=== PATIENT | male | born 1990 | race American Indian/Alaskan Native ===

== ENCOUNTER 2018-06-19 04:26 | Emergency (ER) | payer BC, OTHER ==
[2018-06-19 05:52] VITALS: BP 139/86
--- NOTE | 2018-06-19 06:31 | Emergency Department Report ---
<TOSHIA ARTEAGA A - Last Filed: 06/19/18 08:12> ED Abdominal Pain HPI - General Chief Complaint: Rectal Pain Stated Complaint: RECTUM SWELLING Time Seen by Provider: 06/19/18 06:08 - Related Data Home Medications Medication Instructions Recorded Confirmed Last Taken Emtricita/Rilpiviri/Tenofo(Nf) 1 tab PO QDAY 09/24/15 09/24/15 09/23/15 16:00 [Complera (Nf) 200-25-300 mg] Previous Rx's Medication Instructions Recorded Last Taken Type Cyclobenzaprine [Flexeril] 10 mg PO TID PRN #10 tablet 05/06/16 Unknown Rx methylPREDNISolone [Medrol] 4 mg PO DAILY #1 tab.ds.pk 05/06/16 Unknown Rx traMADol [Ultram] 50 mg PO Q6HR PRN #10 tablet 05/06/16 Unknown Rx Sulfamethoxazole/Trimethoprim 1 each PO BID 10 Days #20 tablet 06/19/18 Unknown Rx [Bactrim DS TAB] Allergies Allergy/AdvReac Type Severity Reaction Status Date / Time No Known Allergies Allergy Unverified 09/24/15 10:44 ED Review of Systems ROS: Stated complaint: RECTUM SWELLING Other details as noted in HPI ED Past Medical Hx - Medications Home Medications: Home Medications Medication Instructions Recorded Confirmed Last Taken Type Emtricita/Rilpiviri/Tenofo(Nf) 1 tab PO QDAY 09/24/15 09/24/15 09/23/15 16:00 History [Complera (Nf) 200-25-300 mg] Cyclobenzaprine [Flexeril] 10 mg PO TID PRN #10 tablet 05/06/16 Unknown Rx methylPREDNISolone [Medrol] 4 mg PO DAILY #1 tab.ds.pk 05/06/16 Unknown Rx traMADol [Ultram] 50 mg PO Q6HR PRN #10 tablet 05/06/16 Unknown Rx Sulfamethoxazole/Trimethoprim 1 each PO BID 10 Days #20 tablet 06/19/18 Unknown Rx [Bactrim DS TAB] ED Course Vital Signs 06/19/18 06/19/18 05:50 08:25 Temperature 98.0 F 98.0 F Pulse Rate 76 76 Respiratory 20 20 Rate Blood Pressure 139/86 Blood Pressure 139/86 [Right] O2 Sat by Pulse 99 99 Oximetry ED Medical Decision Making - Lab Data Result diagrams: 06/19/18 06:22 06/19/18 06:22 Lab Results 06/19/18 06/19/18 06/19/18 Range/Units 06:22 06:22 Unknown WBC 10.0 (4.5-11.0) K/mm3 RBC 4.95 (3.65-5.03) M/mm3 Hgb 15.2 (11.8-15.2) gm/dl Hct 44.8 (35.5-45.6) % MCV 91 (84-94) fl MCH 31 (28-32) pg MCHC 34 (32-34) % RDW 14.5 (13.2-15.2) % Plt Count 187 (140-440) K/mm3 Lymph % (Auto) 32.7 (13.4-35.0) % [place] % (Auto) 8.3 H (0.0-7.3) % Eos % (Auto) 0.6 (0.0-4.3) % Baso % (Auto) 0.3 (0.0-1.8) % Lymph # 3.3 (1.2-5.4) K/mm3 [place] # 0.8 (0.0-0.8) K/mm3 Eos # 0.1 (0.0-0.4) K/mm3 Baso # 0.0 (0.0-0.1) K/mm3 Seg Neutrophils % 58.1 (40.0-70.0) % Seg Neutrophils # 5.8 (1.8-7.7) K/mm3 Sodium 139 (137-145) mmol/L Potassium 4.4 (3.6-5.0) mmol/L Chloride 98.5 (98-107) mmol/L Carbon Dioxide 29 (22-30) mmol/L Anion Gap 16 mmol/L BUN 12 (9-20) mg/dL Creatinine 1.1 (0.8-1.5) mg/dL Estimated GFR > 60 ml/min BUN/Creatinine Ratio 11 % Glucose 95 (75-100) mg/dL Calcium 9.1 (8.4-10.2) mg/dL Urine Color Yellow (Yellow) Urine Turbidity Clear (Clear) Urine pH 7.0 (5.0-7.0) Ur Specific [place] 1.003 (1.003-1.030) Urine Protein <15 mg/dl (Negative) mg/dL Urine Glucose (UA) Neg (Negative) mg/dL Urine Ketones Neg (Negative) mg/dL Urine Blood Neg (Negative) Urine Nitrite Neg (Negative) Urine Bilirubin Neg (Negative) Urine Urobilinogen < 2.0 (<2.0) mg/dL Ur Leukocyte Esterase Neg (Negative) Urine WBC (Auto) < 1.0 (0.0-6.0) /HPF Urine RBC (Auto) < 1.0 (0.0-6.0) /HPF - Radiology Data Radiology results: report reviewed Patient: KATIE AQUINO MR#: [id number] : 1990 Acct:[id number] Age/Sex: 28 / M ADM Date: 06/19/18 Loc: ED Attending Dr: Ordering Physician: LETY HOLBROOK NP Date of Service: 06/19/18 Procedure(s): CT abdomen pelvis w con Accession Number(s): [id number] cc: LETY HOLBROOK NP FINAL REPORT PROCEDURE: CT ABDOMEN PELVIS W CON TECHNIQUE: Computerized axial tomography of the abdomen and pelvis was performed after the IV injection of iodinated nonionic contrast. HISTORY: rectal abscess COMPARISON: No prior studies are available for comparison. FINDINGS: Visualized lower thorax: No significant abnormality. Liver: Normal size and attenuation. Spleen: Normal size and attenuation. Gallbladder and biliary system: Normal. Pancreas: Normal. Adrenals: Normal. Kidneys: Normal. GI tract: There is no bowel obstruction, colitis or enteritis. The appendix is not identified.. Lymph nodes and mesentery: Normal. Vasculature: Normal. Bladder: Normal. Reproductive organs: Normal. Peritoneum: There is no ascites or free air, abscess or adenopathy.. Musculoskeletal structures: No significant abnormality. Other: There is no perirectal abscess. IMPRESSION: There is no bowel obstruction, colitis or enteritis. The appendix is not identified.. There is no ascites or free air, abscess or adenopathy.. There is no perirectal abscess. Transcribed By: CO Dictated By: ALEK GAY MD Electronically Authenticated By: ALEK GAY MD Signed Date/Time: 06/19/18741 DD/ 1 TD/TT: 06/19/18741 Critical care attestation.: If time is entered above; I have spent that time in minutes in the direct care of this critically ill patient, excluding procedure time. ED Disposition Clinical Impression: Pain, rectal, Status post hemorrhoidectomy Hemorrhoids Qualifiers: Hemorrhoid type: unspecified Qualified Code(s): K64.9 - Unspecified hemorrhoids Disposition: DC-01 TO HOME OR SELFCARE Is pt being admited?: No Does the pt Need Aspirin: No Condition: Stable Instructions: Hemorrhoids (ED), Hemorrhoidectomy (ED) Additional Instructions: Follow up with your surgeon today follow up with your HIV physician keep affected area clean and dry Prescriptions: Sulfamethoxazole/Trimethoprim [Bactrim DS TAB] 1 each PO BID 10 Days #20 tablet Referrals: Follow up with, Your Surgeon [Other] - 06/19/18 PRIMARY CARE, [Primary Care Provider] - 06/19/18 Forms: Work/School Release Form(ED) <LETY HOLBROOK - Last Filed: 06/21/18 19:16> ED Abdominal Pain HPI - General Source: patient Mode of arrival: Ambulatory Limitations: No Limitations - History of Present Illness Initial Comments: Patient is a 28-year-old -[place] male HIV positive patient has history of genital warts and hemorrhoids status post hemorrhoidectomy 3 months ago with abscess presents for rectal pain and swelling 4 days patient states bloody showed tissue with wiping after BM there is no drainage or there is palpable fluctuance. Symptoms are exacerbated by bowel movement, palpation and intercourse. Patient denies fever or chills there is no abdominal pain no nausea/ vomiting. Complaint: other (rectal pain ) Onset/Timin -: days(s) Migration to: no migration Severity: moderate Severity scale (0 -10): 5 Quality: aching, sharp, burning Consistency: intermittent Worsens With: bowel movement, rest (palpation) Context: recent surgery/procedure (Hemorrhoidectomy and Condlyloma) Associated Symptoms: nausea. denies: vomiting, diarrhea, fever, chills, constipation, dysuria, hematemesis, hematochezia, melena, hematuria, anorexia, syncope ED Review of Systems Constitutional: denies: chills, fever Eyes: denies: eye pain, eye discharge, vision change ENT: denies: ear pain, throat pain Respiratory: denies: cough, shortness of breath, wheezing Cardiovascular: denies: chest pain, palpitations Endocrine: no symptoms reported Gastrointestinal: denies: abdominal pain, nausea, vomiting, diarrhea, constipation, hematemesis, melena, hematochezia Genitourinary: denies: urgency, dysuria, frequency, hematuria, testicular pain, testicular mass Musculoskeletal: back pain. denies: joint swelling, arthralgia Skin: denies: rash, lesions Neurological: denies: headache, weakness, paresthesias Psychiatric: denies: anxiety, depression Hematological/Lymphatic: denies: easy bleeding, easy bruising ED Past Medical Hx - Past Medical History Previous Medical History?: Yes Hx HIV: Yes - Surgical History Past Surgical History?: No - Social History Smoking Status: Never Smoker ED Physical Exam - General Limitations: No Limitations General appearance: alert, in no apparent distress - Head Head exam: Present: atraumatic, normocephalic - Eye Eye exam: Present: normal appearance. Absent: PERRL, EOMI - ENT ENT exam: Present: mucous membranes moist - Neck Neck exam: Present: normal inspection, full ROM. Absent: tenderness, lymphadenopathy, thyromegaly - Respiratory Respiratory exam: Absent: wheezes, stridor, chest wall tenderness - Cardiovascular Cardiovascular Exam: Present: regular rate, normal rhythm, normal heart sounds. Absent: systolic murmur, diastolic murmur, rubs, gallop - GI/Abdominal GI/Abdominal exam: Present: soft, normal bowel sounds. Absent: distended, tenderness, guarding, rebound, rigid, organomegaly, mass, bruit, pulsatile mass , hernia - Rectal Rectal exam: Present: normal rectal tone, hemorrhoids (internal 3 Oclock lateral , smooth fluctuant ), mass, tenderness, normal prostate, other (genital warts ) . Absent: bloody stool - exam: Present: normal inspection. Absent: testicular tenderness, urethral discharge, scrotal swelling, vertical testicular lie, circumcision External exam: Present: lesions (gental warts small multiple ). Absent: erythema, swelling, lacerations, ecchymosis, bleeding - Extremities Exam Extremities exam: Present: normal inspection - Back Exam Back exam: Present: normal inspection, full ROM. Absent: tenderness, CVA tenderness (R), CVA tenderness (L), muscle spasm, paraspinal tenderness, rash noted - Expanded Back Exam Expanded Back exam: Absent: saddle anesthesia, decreased rectal tone - Neurological Exam Neurological exam: Present: alert, oriented X3, CN II-XII intact, normal gait, reflexes normal. Absent: motor sensory deficit - Psychiatric Psychiatric exam: Present: normal affect, normal mood - Skin Skin exam: Present: warm, dry, intact, normal color. Absent: rash ED Medical Decision Making - Lab Data Result diagrams: 06/19/18 06:22 06/19/18 06:22 - Medical Decision Making There is a palpable internal hemorrhoid versus abscess approximately 3:00 on exam smooth fluctuant painful to palpation there is no rectal discharge to rectal bleeding at this time noted multiple external genital genital warts versus condyloma patient rates pain at 4/10 described as itching and burning sharp pain when attempting to sit both patient and partner didn't deny penile discharge no abdominal pain no nausea vomiting plan: BMP CBC UA CT pelvis rule out rectal abscess. Rectal abscess on CT we'll consult General Surgery, if no rectal abscess will treat for internal hemorrhoid, again pain is 4/10 at this time patient denies pain medicine.
[2018-06-19 06:38] LABS: Basophils % (Auto) 0.3 % (0.0-1.8); Eosinophils # (Auto) 0.1 K/mm3 (0.0-0.4); Eosinophils % (Auto) 0.6 % (0.0-4.3); Hematocrit 44.8 % (35.5-45.6); Hemoglobin 15.2 gm/dl (11.8-15.2); Lymphocytes # (Auto) 3.3 K/mm3 (1.2-5.4); Lymphocytes % (Auto) 32.7 % (13.4-35.0); Mean Corpuscular HGB Conc 34 % (32-34); Mean Corpuscular Hemoglobin 31 pg (28-32); Mean Corpuscular Volume 91 fl (84-94); Monocytes # (Auto) 0.8 K/mm3 (0.0-0.8); Monocytes % (Auto) 8.3 % (0.0-7.3); Platelet Count 187 K/mm3 (140-440); Red Blood Count 4.95 M/mm3 (3.65-5.03); Red Cell Distribution Width 14.5 % (13.2-15.2)
[2018-06-19 06:55] LABS: BUN/Creatinine Ratio 11; Blood Urea Nitrogen 12 mg/dL (9-20); Calcium 9.1 mg/dL (8.4-10.2); Hemolysis Index 14
[2018-06-19 07:04] LABS: Bilirubin,Urine NEG (Negative); Blood,Urine NEG (Negative); Color,Urine Yellow (Yellow); Protein,Urine <15 mg/dL mg/dL (Negative); RBC,Urine < 1.0 /HPF (0.0-6.0); Urobilinogen,Urine < 2.0 mg/dL (<2.0); WBC,Urine < 1.0 /HPF (0.0-6.0)
--- NOTE | 2018-06-19 07:50 | Cat Scan Report ---
FINAL REPORT PROCEDURE: CT ABDOMEN PELVIS W CON TECHNIQUE: Computerized axial tomography of the abdomen and pelvis was performed after the IV injection of iodinated nonionic contrast. HISTORY: rectal abscess COMPARISON: No prior studies are available for comparison. FINDINGS: Visualized lower thorax: No significant abnormality. Liver: Normal size and attenuation. Spleen: Normal size and attenuation. Gallbladder and biliary system: Normal. Pancreas: Normal. Adrenals: Normal. Kidneys: Normal. GI tract: There is no bowel obstruction, colitis or enteritis. The appendix is not identified.. Lymph nodes and mesentery: Normal. Vasculature: Normal. Bladder: Normal. Reproductive organs: Normal. Peritoneum: There is no ascites or free air, abscess or adenopathy.. Musculoskeletal structures: No significant abnormality. Other: There is no perirectal abscess. IMPRESSION: There is no bowel obstruction, colitis or enteritis. The appendix is not identified.. There is no ascites or free air, abscess or adenopathy.. There is no perirectal abscess.
== END 2018-06-19 08:24 | disposition home or self-care (01) ==
LOC: ED 04:26
DX: K64.9 Unspecified hemorrhoids (principal); Z98.890 Other specified postprocedural states
CPT/HCPCS: 36415; 74177; 80048; 81001; 85025; 99284; Q9967

== ENCOUNTER 2020-08-02 15:47 | Emergency (ER) | payer SELFPAY ==
[2020-08-02 16:04] VITALS: BP 144/84
[2020-08-02] MEDS ORDERED: KETOROLAC 10 MG TAB PO ONE (17:42)
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
== END 2020-08-02 19:40 | disposition home or self-care (01) ==
LOC: ED 15:47
DX: S16.1XXA Strain of muscle, fascia and tendon at neck level, initial encounter (principal); M25.532 Pain in left wrist; M25.572 Pain in left ankle and joints of left foot; Z79.899 Other long term (current) drug therapy; Z21 Asymptomatic human immunodeficiency virus [HIV] infection status; V49.49XA Driver injured in collision with other motor vehicles in traffic accident, initial encounter; Y92.410 Unspecified street and highway as the place of occurrence of the external cause; Y93.89 Activity, other specified; Y99.8 Other external cause status
CPT/HCPCS: 72040